=== PATIENT | female | born 1950 | race Caucasian/White ===

== ENCOUNTER 2020-11-12 16:44 | Inpatient (IN) | payer MEDICARE, OTHER ==
[2020-11-12 18:39] LABS: BASOPHIL 0.3 % (0-2); EOSINOPHIL 0.6 % (0-7); HCT 39.5 % (37.0-47.0); HGB 13.3 g/dl (12.5-16.0); LYMPHOCYTE 14.7 % (15-48); MCH 33.3 pg (25.0-31.0); MCHC 33.7 g/dL (32.0-36.0); MCV 98.8 fL (78.0-100.0); MONOCYTE 6.2 % (0-12); MPV 9.8 fL (6.0-9.5); NEUTROPHIL 77.9 % (41-80); NRBC 0; PLT 256 K/uL (150-400); RDW 12.2 % (11.5-14.0); WBC 10.8 K/uL (4.0-10.5)
[2020-11-12 18:44] LABS: BILIRUBIN - TOTAL 0.4 mg/dL (0.2-1.0); BUN/CREAT RATIO (CALC) 15.4 RATIO; CREATININE 0.65 mg/dL (0.51-0.95); GLOBULIN (CALCULATION) 4.2 g/dL; POTASSIUM 3.6 mmol/L (3.5-5.1); TOTAL PROTEIN 8.2 g/dL (6.4-8.2)
[2020-11-12 19:17] LABS: BILIRUBIN NEGATIVE (NEGATIVE); BLOOD NEGATIVE Ery/uL (NEGATIVE); CLARITY CLEAR (CLEAR); COLOR YELLOW (YELLOW); GLUCOSE (U) NORMAL (NORMAL); LEUKOCYTES NEGATIVE Leu/uL (NEGATIVE); NITRITE NEGATIVE (NEGATIVE); PROTEIN NEGATIVE (NEGATIVE); SPECIFIC GRAVITY 1.015 (1.001-1.030); UROBILINOGEN 0.2 mg/dL (0.2-1.0)
[2020-11-12] MEDS ORDERED: MIRALAX17 G1 PO (22:26)
[2020-11-12] MEDS ORDERED: COLACE100 MG PO (22:26)
[2020-11-12] MEDS ORDERED: ZOCOR20 MG PO (22:27)
[2020-11-12] MEDS ORDERED: MOBIC7.5 MG PO (22:27)
[2020-11-12] MEDS ORDERED: MULTI COMPLETE1 EACH PO (22:28)
[2020-11-12] MEDS ORDERED: LOVAZA1 GM PO (22:29)
[2020-11-13 05:58] LABS: BASOPHIL 0.2 % (0-2); EOSINOPHIL 0.2 % (0-7); HCT 36.2 % (37.0-47.0); LYMPHOCYTE 25.5 % (15-48); MCH 33.4 pg (25.0-31.0); MCHC 33.1 g/dL (32.0-36.0); MCV 100.8 fL (78.0-100.0); MONOCYTE 9.3 % (0-12); MPV 9.6 fL (6.0-9.5); NEUTROPHIL 64.6 % (41-80); NRBC 0; PLT 226 K/uL (150-400); RBC 3.59 M/uL (4.20-5.40); RDW 12.7 % (11.5-14.0); WBC 8.8 K/uL (4.0-10.5)
[2020-11-13 06:23] LABS: ALBUMIN 3.4 g/dL (3.4-5.0); BILIRUBIN - TOTAL 0.3 mg/dL (0.2-1.0); BUN/CREAT RATIO (CALC) 14.3 RATIO; CREATININE 0.63 mg/dL (0.51-0.95); GLOBULIN (CALCULATION) 3.7 g/dL; POTASSIUM 3.9 mmol/L (3.5-5.1); TOTAL PROTEIN 7.1 g/dL (6.4-8.2)
[2020-11-14 04:29] LABS: BASOPHIL 0.3 % (0-2); EOSINOPHIL 2.2 % (0-7); HCT 34.1 % (37.0-47.0); HGB 11.1 g/dl (12.5-16.0); LYMPHOCYTE 40.2 % (15-48); MCH 33.4 pg (25.0-31.0); MCHC 32.6 g/dL (32.0-36.0); MCV 102.7 fL (78.0-100.0); MONOCYTE 9.4 % (0-12); MPV 9.6 fL (6.0-9.5); NEUTROPHIL 47.8 % (41-80); NRBC 0; PLT 207 K/uL (150-400); RBC 3.32 M/uL (4.20-5.40); RDW 12.6 % (11.5-14.0); WBC 6.9 K/uL (4.0-10.5)
[2020-11-14 04:47] LABS: ALBUMIN 3.2 g/dL (3.4-5.0); BILIRUBIN - TOTAL 0.4 mg/dL (0.2-1.0); BUN/CREAT RATIO (CALC) 14.5 RATIO; CREATININE 0.55 mg/dL (0.51-0.95); GLOBULIN (CALCULATION) 3.5 g/dL; POTASSIUM 3.3 mmol/L (3.5-5.1); TOTAL PROTEIN 6.7 g/dL (6.4-8.2)
[2021-01-04] MEDS ORDERED: PROTONIX 40MG T40 MG PO (07:58)
== END 2020-11-15 10:25 | disposition home or self-care (01) | DRG 390 ==
LOC: FER 16:44 → FMS 21:05
PROVIDERS: Allergy & Immunology Allergy; Nurse Practitioner; Physician Assistant; ADMIT Internal Medicine
DX: K56.690 Other partial intestinal obstruction (principal); E78.5 Hyperlipidemia, unspecified; K21.9 Gastro-esophageal reflux disease without esophagitis; M54.9 Dorsalgia, unspecified; G89.29 Other chronic pain; M85.80 Other specified disorders of bone density and structure, unspecified site; Z20.822 Contact with and (suspected) exposure to COVID-19; F41.1 Generalized anxiety disorder; E87.8 Other disorders of electrolyte and fluid balance, not elsewhere classified; Z90.49 Acquired absence of other specified parts of digestive tract; Z87.891 Personal history of nicotine dependence; Z79.899 Other long term (current) drug therapy
CPT/HCPCS: 36415; 80053; 81003; 83605; 83690; 85025; 96374; 96375; J1170; J1200; J1650; J2270; J2405; J3480; J7030; J7120; Q9967; U0002

== ENCOUNTER → 2021-01-04 | Day surgery (SDC) | payer MEDICARE, OTHER ==
[~2021-01-04] MED LIST: COLACE100 MG PO; LOVAZA1 GM PO; MIRALAX17 G1 PO; MOBIC7.5 MG PO; MULTI COMPLETE1 EACH PO; PROTONIX 40MG T40 MG PO; ZOCOR20 MG PO
== END | disposition home or self-care (01) ==
LOC: FAS 06:28
DX: K57.10 Diverticulosis of small intestine without perforation or abscess without bleeding (principal); K29.70 Gastritis, unspecified, without bleeding; K22.2 Esophageal obstruction; E78.5 Hyperlipidemia, unspecified; Z79.899 Other long term (current) drug therapy; Z82.49 Family history of ischemic heart disease and other diseases of the circulatory system; Z83.3 Family history of diabetes mellitus; Z98.51 Tubal ligation status
CPT/HCPCS: 88305; J2704; J7120

== ENCOUNTER 2021-07-27 16:49 | Inpatient (IN) | payer MEDICARE, OTHER ==
[~2021-07-27] VITALS: Ht 157.5 cm; Wt 60.4 kg
[2021-07-27 17:35] LABS: BASOPHIL 0.3 % (0-2); EOSINOPHIL 0.4 % (0-7); HCT 37.4 % (37.0-47.0); LYMPHOCYTE 14.4 % (15-48); MCH 33.7 pg (25.0-31.0); MCHC 34.8 g/dL (32.0-36.0); MCV 96.9 fL (78.0-100.0); MONOCYTE 6.1 % (0-12); MPV 10.2 fL (6.0-9.5); NEUTROPHIL 78.4 % (41-80); NRBC 0; PLT 316 K/uL (150-400); RBC 3.86 M/uL (4.20-5.40); RDW 12.3 % (11.5-14.0); WBC 12.1 K/uL (4.0-10.5)
[2021-07-27 17:54] LABS: ALBUMIN 4.5 g/dL (3.4-5.0); BILIRUBIN - TOTAL 0.5 mg/dL (0.2-1.0); BUN/CREAT RATIO (CALC) 23.8 RATIO; CREATININE 0.63 mg/dL (0.51-0.95); GLOBULIN (CALCULATION) 4.4 g/dL; POTASSIUM 3.9 mmol/L (3.5-5.1); TOTAL PROTEIN 8.9 g/dL (6.4-8.2)
[2021-07-27 18:40] LABS: LACTIC ACID 1.8 mmol/L (0.4-1.9)
[2021-07-27 20:53] LABS: BILIRUBIN NEGATIVE (NEGATIVE); BLOOD NEGATIVE Ery/uL (NEGATIVE); CLARITY CLEAR (CLEAR); COLOR YELLOW (YELLOW); GLUCOSE (U) NORMAL (NORMAL); LEUKOCYTES TRACE Leu/uL (NEGATIVE); NITRITE NEGATIVE (NEGATIVE); PROTEIN NEGATIVE (NEGATIVE); SPECIFIC GRAVITY <=1.005 (1.001-1.030); UROBILINOGEN 0.2 mg/dL (0.2-1.0); pH 6.5 (5.0-9.0)
[2021-07-27 21:02] LABS: BACTERIA TRACE; URINARY RBC RARE
[2021-07-27] MEDS ORDERED: LISINOPRIL10 MG PO (22:55)
[2021-07-28 06:02] LABS: BASOPHIL 0.1 % (0-2); EOSINOPHIL 0 % (0-7); HCT 30.5 % (37.0-47.0); HGB 10.3 g/dl (12.5-16.0); LYMPHOCYTE 10.1 % (15-48); MCH 33.7 pg (25.0-31.0); MCHC 33.8 g/dL (32.0-36.0); MCV 99.7 fL (78.0-100.0); MONOCYTE 6.7 % (0-12); MPV 9.4 fL (6.0-9.5); NRBC 0; PLT 244 K/uL (150-400); RBC 3.06 M/uL (4.20-5.40); RDW 12.7 % (11.5-14.0)
[2021-07-28 06:18] LABS: INR 1.08 (0.9-1.2); PROTHROMBIN TIME 13.4 SECONDS (11.8-13.4)
[2021-07-28 06:44] LABS: ALBUMIN 3.3 g/dL (3.4-5.0); BILIRUBIN - TOTAL 0.4 mg/dL (0.2-1.0); BUN/CREAT RATIO (CALC) 27.6 RATIO; C-REACTIVE PROTEIN 3.4 mg/dL (<=0.90); CREATININE 0.58 mg/dL (0.51-0.95); GLOBULIN (CALCULATION) 3.4 g/dL; MAGNESIUM 1.6 mg/dL (1.8-2.4); PHOSPHORUS 4.8 mg/dL (2.6-4.7); POTASSIUM 4.2 mmol/L (3.5-5.1)
[2021-07-28 06:49] LABS: TOTAL PROTEIN 6.7 g/dL (6.4-8.2)
[2021-07-29 06:17] LABS: BASOPHIL 0.3 % (0-2); EOSINOPHIL 1.2 % (0-7); HCT 31.5 % (37.0-47.0); HGB 10.4 g/dl (12.5-16.0); LYMPHOCYTE 30.8 % (15-48); MCH 34.1 pg (25.0-31.0); MCV 103.3 fL (78.0-100.0); MONOCYTE 8.5 % (0-12); MPV 9.4 fL (6.0-9.5); NEUTROPHIL 58.9 % (41-80); NRBC 0; PLT 237 K/uL (150-400); RBC 3.05 M/uL (4.20-5.40); RDW 13.1 % (11.5-14.0); WBC 7.3 K/uL (4.0-10.5)
[2021-07-29 06:31] LABS: BUN/CREAT RATIO (CALC) 20.8 RATIO; CREATININE 0.48 mg/dL (0.51-0.95); MAGNESIUM 1.6 mg/dL (1.8-2.4); POTASSIUM 3.7 mmol/L (3.5-5.1)
[2021-07-30 06:34] LABS: BASOPHIL 0.4 % (0-2); EOSINOPHIL 2.9 % (0-7); HCT 34.3 % (37.0-47.0); HGB 11.5 g/dl (12.5-16.0); LYMPHOCYTE 34.1 % (15-48); MCH 33.6 pg (25.0-31.0); MCHC 33.5 g/dL (32.0-36.0); MCV 100.3 fL (78.0-100.0); MPV 9.4 fL (6.0-9.5); NEUTROPHIL 51.4 % (41-80); NRBC 0; PLT 251 K/uL (150-400); RBC 3.42 M/uL (4.20-5.40); RDW 12.5 % (11.5-14.0); WBC 5.5 K/uL (4.0-10.5)
[2021-07-30 06:55] LABS: BUN/CREAT RATIO (CALC) 14.3 RATIO; CREATININE 0.49 mg/dL (0.51-0.95); MAGNESIUM 1.8 mg/dL (1.8-2.4); POTASSIUM 4.1 mmol/L (3.5-5.1)
--- NOTE | 2021-07-30 17:19 | NUR ---
PATIENT STATES SHE WILL MAKE HER OWN FOLLOW UP APPOINTMENTS WITH DR CASTRO AND PCP, HAS PHONE NUMBERS JUST READY TO LEAVE. PATIENT IN STABLE CONDITION. IV REMOVED. PATIENT ON ROOM AIR, STEADY ON FEET. DISCHARGE HOME WITH
== END 2021-07-30 17:10 | disposition home or self-care (01) | DRG 393 ==
LOC: FER 16:49 → FMS 19:22
PROVIDERS: Internal Medicine; Nurse Practitioner; ADMIT Internal Medicine
DX: K91.89 Other postprocedural complications and disorders of digestive system (principal); U07.1 COVID-19; K56.690 Other partial intestinal obstruction; E87.1 Hypo-osmolality and hyponatremia; I10 Essential (primary) hypertension; K21.9 Gastro-esophageal reflux disease without esophagitis; F41.1 Generalized anxiety disorder; G89.29 Other chronic pain; M85.80 Other specified disorders of bone density and structure, unspecified site; E78.5 Hyperlipidemia, unspecified; Z90.710 Acquired absence of both cervix and uterus; Z98.51 Tubal ligation status; Z90.89 Acquired absence of other organs; Z98.890 Other specified postprocedural states; Z90.49 Acquired absence of other specified parts of digestive tract; Z83.3 Family history of diabetes mellitus; Z82.3 Family history of stroke; Z82.49 Family history of ischemic heart disease and other diseases of the circulatory system; Y83.2 Surgical operation with anastomosis, bypass or graft as the cause of abnormal reaction of the patient, or of later complication, without mention of misadventure at the time of the procedure
CPT/HCPCS: 36415; 71045; 74019; 80048; 80053; 81001; 82150; 82728; 83605; 83615; 83690; 83735; 84100; 84145; 84484; 85025; 85610; 85730; 86140; 93005; 94010; C9113; G0378; J1170; J2405; J3475; J3480; J7030; Q9967; U0002